=== PATIENT | female | born 1940 ===

== ENCOUNTER 2018-06-18 14:05 | Outpatient (CLI) | payer OTHER ==
[~2018-06-18] VITALS: Ht 152.4 cm; Wt 65.8 kg
== END 2018-06-18 14:20 | disposition home or self-care (01) ==
LOC: OFIC 805 14:05
DX: L98.9 Disorder of the skin and subcutaneous tissue, unspecified (principal); L43.8 Other lichen planus; J04.0 Acute laryngitis

== ENCOUNTER 2018-09-24 10:11 | Outpatient (CLI) | payer OTHER ==
[~2018-09-24] VITALS: Ht 152.4 cm; Wt 65.8 kg
== END 2018-09-24 10:25 | disposition home or self-care (01) ==
LOC: OFIC 805 10:11
DX: L98.9 Disorder of the skin and subcutaneous tissue, unspecified (principal); L43.8 Other lichen planus; K13.70 Unspecified lesions of oral mucosa

== ENCOUNTER 2018-10-01 11:18 | Outpatient (CLI) | payer OTHER ==
[~2018-10-01] VITALS: Ht 152.4 cm; Wt 65.8 kg
== END 2018-10-01 11:35 | disposition home or self-care (01) ==
LOC: OFIC 805 11:18
DX: K13.79 Other lesions of oral mucosa (principal); L43.8 Other lichen planus

== ENCOUNTER 2018-10-22 11:54 | Outpatient (CLI) | payer OTHER ==
[~2018-10-22] VITALS: Ht 152.4 cm; Wt 65.8 kg
== END 2018-10-22 12:15 | disposition home or self-care (01) ==
LOC: OFIC 805 11:54
DX: L43.8 Other lichen planus (principal); K13.70 Unspecified lesions of oral mucosa; L98.9 Disorder of the skin and subcutaneous tissue, unspecified; C06.9 Malignant neoplasm of mouth, unspecified